=== PATIENT | male | born 1995 ===

== ENCOUNTER → 2020-01-25 | Outpatient (CLI) | payer BC | LOC: ZCOL.LAB 15:27 | DX: Z20.828 Contact with and (suspected) exposure to other viral communicable diseases (principal) ==

== ENCOUNTER 2020-09-18 11:52 | Emergency (ER) | payer BC ==
[~2020-09-18] VITALS: Ht 180.3 cm; Wt 104.5 kg
[2020-09-18 13:10] VITALS: TEMP 98
[2020-09-18 14:29] LABS: STREP SCREEN NEGATIVE
[2020-09-18 15:16] VITALS: BP 116/77; PULSE 90
== END 2020-09-18 15:16 | disposition home or self-care (01) ==
LOC: COL.ER 11:52
PROVIDERS: Nurse Practitioner
DX: U07.1 COVID-19 (principal)